=== PATIENT | male | born 1955 | race Caucasian/White ===

== ENCOUNTER 2020-06-18 17:51 | Inpatient (IN) | payer MEDICAID ==
[~2020-06-18] VITALS: Ht 180.3 cm; Wt 77.1 kg
--- NOTE | 2020-06-18 17:51 | NUR ---
PT BIB SELF C/O ABDOMINAL PAIN SINCE SATURDAY. PT IS AAOX4, NOT IN RESPIRATORY DISTRESS, V/S STABLE, KEPT RESTED AND COMFORTABLE. WILL CONTINUE TO MONITOR.
--- NOTE | 2020-06-18 17:56 | NUR ---
UNABLE TO PROVIDE URINE SPECIMEN THIS TIME.
--- NOTE | 2020-06-18 18:10 | NUR ---
IV LINE ESTABLISHED BLOOD DRAWN AND SENT TO LAB.
--- NOTE | 2020-06-18 18:12 | NUR ---
AT BEDSIDE FOR EVAL.
[2020-06-18 18:25] LABS: BASOPHILS % (AUTO) 0.2 % (0.0-2.0); EOSINOPHILS % (AUTO) 0.8 % (0.0-6.0); HEMATOCRIT 43 % (39-51); HEMOGLOBIN 14.1 g/dL (13.5-17.5); LYMPHOCYTES # (AUTO) 0.8 /CMM (0.8-4.8); LYMPHOCYTES % (AUTO) 8.8 % (20.0-44.0); MEAN CORPUSCULAR HGB CONC 33 g/dl (31.0-36.0); MEAN CORPUSCULAR VOLUME 82 fL (80-96); MONOCYTES # (AUTO) 0.7 /CMM (0.1-1.30); MONOCYTES % (AUTO) 7.8 % (2.0-12.0); NEUTROPHILS # (AUTO) 7.5 /CMM (1.8-8.9); NEUTROPHILS % (AUTO) 82.4 % (43.0-81.0); RED BLOOD CELL COUNT(AUTO) 5.24 MIL/uL (4.5-6.0); WHITE BLOOD COUNT (AUTO) 9.1 K/uL (4.3-11.0)
[2020-06-18 18:39] LABS: CALCIUM, SERUM 8.8 mg/dL (8.5-10.1); CREATININE 1.6 mg/dL (0.6-1.3); PLATELET COUNT (AUTO) 27 /CMM (150-450); POTASSIUM 4.2 mmol/L (3.5-5.1)
[2020-06-18 18:41] LABS: EOSINOPHILS % (MANUAL) 5 % (0-4); LYMPHOCYTES % (MANUAL) 5 % (16-48); MONOCYTES % (MANUAL) 8 % (0-11.0); NEUTROPHILS % (MANUAL) 82 (42-76)
[2020-06-18] MEDS ORDERED: MORPHINE SULFATE INJ 2 MG/ML DISP.SYRIN ONE (18:41)
[2020-06-18 18:45] LABS: ALBUMIN 3.4 g/dL (3.4-5.0); BILIRUBIN,DIRECT 0.4 mg/dL (0.0-0.2); BILIRUBIN,TOTAL 0.9 mg/dL (0.2-1.0); TOTAL PROTEIN, SERUM 5.9 g/dL (6.4-8.2)
[2020-06-18] MEDS ORDERED: MORPHINE SULFATE INJ 2 MG/ML DISP.SYRIN IV ONE (19:00)
[2020-06-18 19:22] LABS: BILIRUBIN,URINE NEGATIVE (NEGATIVE); COLOR,URINE YELLOW (YELLOW); LEUKOCYTE ESTERASE ,URINE NEGATIVE (NEGATIVE); NITRITE, URINE NEGATIVE (NEGATIVE); PROTEIN,URINE TRACE mg/dl (NEGATIVE); UGLUCOSE NEGATIVE (NEGATIVE); UROBILINOGEN,URINE 0.2 EU/dL (0.2)
[2020-06-18 19:33] LABS: BACTERIA,URINE RARE /HPF (None Seen); RBC,URINE 0-2 /HPF (0-2); SQUAMOUS EPITHELIAL CELL,UR 0-2 /HPF (None Seen); WBC,URINE 0-2 /HPF (0-3)
[2020-06-18 19:34] LABS: MUCUS,URINE Few /LPF (None Seen); URINE AMORPHOUS URATE Few /HPF (None Seen)
--- NOTE | 2020-06-18 20:33 | NUR ---
EPIC PAGED PER DR SLOAN
[2020-06-18] MEDS ORDERED: IV NS 0.9% 1,000 ML BAG IV ONE (21:00)
[2020-06-18] MEDS ORDERED: HYDROMORPHONE 1 MG/1 ML DISP.SYRIN IV ONE (21:00)
[2020-06-18] MEDS ORDERED: HYDROMORPHONE 1 MG/1 ML DISP.SYRIN ONE (21:19)
--- NOTE | 2020-06-18 21:51 | NUR ---
CALL FROM LAB. RAPID COVID NEGATIVE.
--- NOTE | 2020-06-18 22:05 | NUR ---
REPORT GIVEN TO NEVA MEDINA FOR [facility] PT WILL BE TRANSPORTED TO 3RD FLOOR
[2020-06-18] MEDS ORDERED: LOSA1TAB42 PO (22:28)
[2020-06-18 22:30] VITALS: BP 163/67
--- NOTE | 2020-06-18 22:30 | NUR ---
MS HORTICULTURAL SERVICES SUPERVISOR NOTE RECEIVED PATIENT VIA WHEEL CHAIR. AMBULATED TO BED WITH STEADY GAIT. A/OX4. TOLERATING ROOM AIR. RESPIRATIONS ARE EVEN AND UNLABORED. NO S/S SOB NOTED. NO C/O PAIN AT THIS TIME. IN NO APPARENT DISTRESS. IV ACCESS IN RAC#18 PATENT AND SALINE LOCKED. INITIAL PHYSICAL ASSESSMENT COMPLETED AT THIS TIME. SKIN ASSESSMENT COMPLETED, SKIN INTACT. MANAGER MUTUAL FUND OBTAINED VITALS AND COMPLETED BELONGING LIST. BED IS LOW AND LOCKED, HOB ELEVATED IN SEMI FOWLERS, SIDE RAILS UP X2, CALL LIGHT WITHIN REACH, EXPLAINED USE. WILL CONTINUE TO MONITOR THROUGHOUT SHIFT.
[2020-06-18 23:00] VITALS: BP 158/69
[2020-06-18] MEDS ORDERED: MORPHINE SULFATE INJ 2 MG/ML DISP.SYRIN IV PRN (23:00)
[2020-06-18] MEDS ORDERED: ACETAMINOPHEN 325 MG TABLET PO PRN (23:00)
[2020-06-18] MEDS ORDERED: Z GUARD REMEDY 2 OZ OINT TP PRN (23:00)
[2020-06-18] MEDS ORDERED: ONDANSETRON HCL/PF 4 MG/2 ML VIAL IVP PRN (23:00)
[2020-06-18] MEDS ORDERED: ENOXAPARIN SODIUM 40 MG/0.4 ML DISP.SYRIN SQ SCH (23:00)
[2020-06-18] MEDS ORDERED: INSU100V7 SQ (23:01)
--- NOTE | 2020-06-18 23:25 | NUR ---
SEMAPHORE OPERATOR NOTE INFORMED POWER PLANT SUPERVISOR DNP KRISTINA KASPER THAT PATIENT HAS LOVENOX 40MG ORDERED BUT PATIENTS PLATELETS IS CRITICALLY LOW AT 27, IF HE WOULD LIKE ME TO ADMINISTER, DNP PER TELEPHONE STATES NO DC ORDER. ORDER READ BACK NOTED AND CARRIED OUT. ALSO INFORMED DNP THAT PATIENT IS DIABETIC AND DOES NOT HAVE A SLIDING SCALE ORDERED, PATIENT CHECKED HIS OWN SUGAR AND IT IS 267. AND TAKES ADMELOG FOR HIS COVERAGE WELL AAS LANTUS 24 UNITS QHS. DNP TELEPHONE ORDER MODERATE SLIDING SCALE. AND LANTUS 20 UNITS. ORDER READ BACK NOTED AND CARRIED OUT.
[2020-06-18] MEDS ORDERED: *INSULIN REGULAR(HUMULIN R)HUM 100 UNIT/ML VIAL SQ PRN (23:30)
[2020-06-18] MEDS ORDERED: DEXTROSE 50%-WATER 50 ML DISP.SYRIN IV PRN (23:30)
[2020-06-18] MEDS ORDERED: PIPERACILLIN /TAZOBACTAM 3.375 G VIAL IV ONE (23:33)
[2020-06-18] MEDS: IV NS 0.9% 1,000 ML IV PRN (23:37)
[2020-06-18] MEDS: ZOSYN IVPB 3.375 G in IV D5W 50ml IV SCH (23:37)
[2020-06-18] MEDS: BLOOD SUGAR DIAGNOSTIC 1 EACH STRIP VI SCH (23:54)
[2020-06-18] MEDS ORDERED: INSULIN GLARGINE, 100 UNIT/ML CARTRIDGE SQ ONE (23:57)
[2020-06-18] MEDS ORDERED: INSULIN REGULAR, HUMAN 100 UNIT/ML 3 ML VIAL ONE (23:57)
[2020-06-19] MEDS ORDERED: PIPERACILLIN /TAZOBACTAM 3.375 G in IV D5W 50 ML IV SCH
[2020-06-19] MEDS: INSULIN GLARGINE, 100 UNIT/ML CARTRIDGE SQ SCH ×2 (00:14→21:56)
--- NOTE | 2020-06-19 00:14 | NUR ---
AIRPLANE PILOT COMMERCIAL NOTE PATIENT ACCUC GUNJANCarmelita READS 211. REFUSE REGULAR INSULIN BUT WILING TO TAKE LANTUS.
[2020-06-19] MEDS ORDERED: PIPERACILLIN /TAZOBACTAM 3.375 G VIAL IV ONE (05:29)
[2020-06-19] MEDS: ZOSYN IVPB 3.375 G in IV D5W 50ml IV SCH (06:04)
[2020-06-19] MEDS: BLOOD SUGAR DIAGNOSTIC 1 EACH STRIP VI SCH ×4 (06:04→21:28)
[2020-06-19] MEDS: INSULIN REGULAR, HUMAN 100 UNIT/ML 3 ML VIAL SQ PRN ×2 (06:15→11:37)
--- NOTE | 2020-06-19 06:38 | NUR ---
MS RN CLOSING NOTE PATIENT RESTING IN BED. A/OX4. REMAINS TOLERATING ROOM AIR. NO RESP DISTRESS.NO C/O PAIN THROUGHOUT SHIFT. NO DISTRESS. IV ACCESS MAINTAINED IN RAC#18 RUNNING NS@75ML/HR.BED IS LOW AND LOCKED, HOB ELEVATED IN SEMI FOWLERS, SIDE RAILS UP X2, CALL LIGHT WITHIN REACH, EXPLAINED USE. WILL ENDORSE TO ONCOMING SHIFT..
[2020-06-19 06:39] LABS: BASOPHILS % (AUTO) 0.5 % (0.0-2.0); EOSINOPHILS % (AUTO) 1.5 % (0.0-6.0); HEMATOCRIT 39 % (39-51); HEMOGLOBIN 12.6 g/dL (13.5-17.5); LYMPHOCYTES # (AUTO) 0.7 /CMM (0.8-4.8); MEAN CORPUSCULAR HGB CONC 32 g/dl (31.0-36.0); MEAN CORPUSCULAR VOLUME 83 fL (80-96); MONOCYTES # (AUTO) 0.4 /CMM (0.1-1.30); MONOCYTES % (AUTO) 10.1 % (2.0-12.0); NEUTROPHILS # (AUTO) 3.1 /CMM (1.8-8.9); NEUTROPHILS % (AUTO) 70.9 % (43.0-81.0); RED BLOOD CELL COUNT(AUTO) 4.68 MIL/uL (4.5-6.0); WHITE BLOOD COUNT (AUTO) 4.3 K/uL (4.3-11.0)
[2020-06-19 06:47] LABS: PLATELET COUNT (AUTO) 21 /CMM (150-450)
[2020-06-19 07:17] LABS: ALBUMIN 2.7 g/dL (3.4-5.0); BILIRUBIN,TOTAL 0.8 mg/dL (0.2-1.0); CALCIUM, SERUM 8.1 mg/dL (8.5-10.1); CREATININE 1.6 mg/dL (0.6-1.3); MAGNESIUM 2.7 mg/dL (1.8-2.4); POTASSIUM 5.1 mmol/L (3.5-5.1)
[2020-06-19 07:21] LABS: THYROID STIMULATING HORMONE 1.013 uIU/mL (0.358-3.74)
--- NOTE | 2020-06-19 07:30 | NUR ---
MS RN OPENING NOTE RECEIVED PATIENT IN BED, AWAKE. A/O X4. ON ROOM AIR - TOLERATING WELL. NO PAIN OR RESPIRATORY DISTRESS NOTED. IV ACCESS IN RAC#18 INTACT AND PATENT - RUNNING NS @75ML/HR. BED IN LOWEST LOCKED POSITION, HOB ELEVATED IN SEMI FOWLERS. SIDE RAILS X2. CALL LIGHT WITHIN REACH. WILL CONTINUE TO MONITOR.
[2020-06-19 08:00] VITALS: BP 132/68
[2020-06-19] MEDS: PANTOPRAZOLE 40 MG VIAL IV SCH (08:07)
[2020-06-19] MEDS: LOSARTAN/HCTZ 50-12.5MG/ 1 EA TABLET PO SCH (08:11)
[2020-06-19 08:31] VITALS: BP 166/94
[2020-06-19] MEDS: PIPERACILLIN /TAZOBACTAM 3.375 G in IV D5W 100 ML IV SCH ×2 (12:20→20:12)
--- NOTE | 2020-06-19 14:40 | NUR ---
MS RN NOTE PATIENT CHECKED HIS BLOOD SUGAR HIMSELF @ 1435. PATIENT ADMINISTERED 8 UNITS OF HIS OWN INSULIN.
[2020-06-19 16:00] VITALS: BP 124/57
--- NOTE | 2020-06-19 16:30 | NUR ---
MS RN NOTE PATIENT CHECKED HIS BLOOD SUGAR HIMSELF @ 1625. BLOOD SUGAR WAS 80 - NO INSULIN ADMINISTERED BY PATIENT.
--- NOTE | 2020-06-19 18:24 | NUR ---
MS RN CLOSING NOTE PATIENT CURRENTLY RESTING IN BED, AWAKE, WATCHING TV. A/O X4. ON ROOM AIR, TOLERATING WELL. NO PAIN OR RESPIRATORY DISTRESS NOTED. IV ACCESS MAINTAINED IN RAC #18 - RUNNING NS @75ML/HR. BED IS LOW AND LOCKED, HOB ELEVATED IN SEMI FOWLERS, SIDE RAILS X2, CALL LIGHT WITHIN REACH. WILL ENDORSE TO POLYMER SPECIALIST NURSE FOR GIBSON.
[2020-06-19 18:42] LABS: C-REACTIVE PROTEIN 5.2 mg/dL (0.0-0.9)
--- NOTE | 2020-06-19 19:40 | NUR ---
MS/RN OPENING NOTE RECEIVED PATIENT RESTING IN BED. AWAKE, ALERT AND ORIENTED X 4. ABLE TO MAKE NEEDS KNOWN. NO COMPLAINTS OF PAIN AT THIS TIME. IV ACCESS TO RIGHT AC #18G INTACT AND PATENT. CONTINUES ON IV NS @ 75ML/HR. CONTINUES ON IV ABX. CONTINUES ON FULL LIQUID DIET. NO COMPLAINTS OF NAUSEA/VOMITING/DIARRHEA AT THIS TIME. CALL LIGHT WITHIN REACH. ASPIRATION, FALL AND SAFETY PRECAUTIONS MAINTAINED. WILL CONTINUE TO MONITOR.
[2020-06-19 20:00] VITALS: BP 134/60
[2020-06-19] MEDS: IV NS 0.9% 1,000 ML IV PRN (20:11)
--- NOTE | 2020-06-19 22:00 | NUR ---
MS/RN NOTE PATIENT WITH BLOOD GLUCOSE LEVEL OF 137. PATIENT REFUSING SLIDING SCALE INSULIN AT THIS TIME. ADMINISTERED LANTUS 20UNITS PER ORDER. WILL CONTINUE TO MONITOR.
[2020-06-20] MEDS: PIPERACILLIN /TAZOBACTAM 3.375 G in IV D5W 100 ML IV SCH ×2 (05:53→12:05)
--- NOTE | 2020-06-20 06:40 | NUR ---
MS/RN CLOSING NOTE PATIENT CURRENTLY RESTING IN BED. AWAKE, ALERT AND ORIENTED X 4. ABLE TO MAKE NEEDS KNOWN. NO COMPLAINTS OF PAIN AT THIS TIME. IV ACCESS TO RIGHT AC #18G INTACT AND PATENT. CONTINUES ON IV NS @ 75ML/HR. CONTINUES ON IV ABX. CONTINUES ON FULL LIQUID DIET. NO COMPLAINTS OF NAUSEA/VOMITING/DIARRHEA AT THIS TIME. CALL LIGHT WITHIN REACH. ASPIRATION, FALL AND SAFETY PRECAUTIONS MAINTAINED. WILL ENDORSE PLAN OF CARE TO ONCOMING SHIFT.
[2020-06-20 06:54] LABS: BASOPHILS % (AUTO) 0.6 % (0.0-2.0); EOSINOPHILS % (AUTO) 3.3 % (0.0-6.0); HEMATOCRIT 38 % (39-51); HEMOGLOBIN 12.3 g/dL (13.5-17.5); LYMPHOCYTES # (AUTO) 0.7 /CMM (0.8-4.8); LYMPHOCYTES % (AUTO) 20.3 % (20.0-44.0); MEAN CORPUSCULAR HGB CONC 33 g/dl (31.0-36.0); MEAN CORPUSCULAR VOLUME 82 fL (80-96); MONOCYTES # (AUTO) 0.3 /CMM (0.1-1.30); MONOCYTES % (AUTO) 9.1 % (2.0-12.0); NEUTROPHILS # (AUTO) 2.3 /CMM (1.8-8.9); NEUTROPHILS % (AUTO) 66.7 % (43.0-81.0); RED BLOOD CELL COUNT(AUTO) 4.63 MIL/uL (4.5-6.0); WHITE BLOOD COUNT (AUTO) 3.4 K/uL (4.3-11.0)
[2020-06-20 06:58] LABS: PLATELET COUNT (AUTO) 16 /CMM (150-450)
[2020-06-20] MEDS: INSULIN REGULAR, HUMAN 100 UNIT/ML 3 ML VIAL SQ PRN (07:09)
[2020-06-20] MEDS: BLOOD SUGAR DIAGNOSTIC 1 EACH STRIP VI SCH ×4 (07:14→21:06)
--- NOTE | 2020-06-20 07:40 | NUR ---
MS RN OPENING NOTE RECEIVED PATIENT IN BED, AWAKE, WATCHING TV. A/O X4. ON ROOM AIR - TOLERATING WELL. NO PAIN OR RESPIRATORY DISTRESS NOTED. IV ACCESS IN RAC #18 - INTACT AND PATENT - RUNNING NS @75ML/HR. BED IN LOWEST LOCKED POSITION, SEMI FOWLERS, SIDE RAILS X2. CALL LIGHT WITHIN REACH. WILL CONTINUE TO MONITOR.
[2020-06-20 08:00] VITALS: BP 139/58
[2020-06-20] MEDS: FERROUS SULFATE (325 MG) 325 MG/TAB TABLET PO SCH (08:19)
[2020-06-20] MEDS: LOSARTAN/HCTZ 50-12.5MG/ 1 EA TABLET PO SCH (08:19)
[2020-06-20] MEDS: PANTOPRAZOLE 40 MG VIAL IV SCH (08:19)
[2020-06-20 09:31] LABS: EOSINOPHILS % (MANUAL) 2 % (0-4); LYMPHOCYTES % (MANUAL) 23 % (16-48); MONOCYTES % (MANUAL) 7 % (0-11.0); NEUTROPHILS % (MANUAL) 68 (42-76)
--- NOTE | 2020-06-20 11:39 | NUR ---
MS RN NOTE PATIENT BLOOD SUGAR @ 317 - REFUSES INSULIN. PATIENT CHECKED OWN BLOOD SUGAR HIMSELF AND IT WAS 288 - STATED HE WOULD GIVE HIMSELF 12 UNITS OF OWN INSULIN.
[2020-06-20 15:24] LABS: OCCULT BLOOD STOOL NEGATIVE (NEGATIVE)
[2020-06-20] MEDS: methylPREDNISolone SOD SUCC 125 MG/2ML VIAL IV SCH ×2 (15:34→21:06)
[2020-06-20 15:56] LABS: D-DIMER 34.78 mg/L(FEU (0.17-0.50)
[2020-06-20 16:00] VITALS: BP 153/59
[2020-06-20] MEDS ORDERED: DEXTROSE 50%-WATER 50 ML DISP.SYRIN IV PRN (17:00)
[2020-06-20] MEDS ORDERED: INSULIN REGULAR, HUMAN 100 UNIT/ML 3 ML VIAL SQ PRN (17:00)
[2020-06-20] MEDS ORDERED: *INSULIN REGULAR(HUMULIN R)HUM 100 UNIT/ML VIAL SQ PRN (17:00)
--- NOTE | 2020-06-20 17:41 | NUR ---
CRITICAL LAB FIBRINOGEN LEVEL 88. YOU GALLEGOS NP NOTIFIED.
--- NOTE | 2020-06-20 18:33 | NUR ---
MS RN CLOSING NOTE PATIENT CURRENTLY RESTING IN BED, AWAKE, WATCHING TV. A/O X4. ON ROOM AIR, TOLERATING WELL. NO PAIN OR RESPIRATORY DISTRESS NOTED. PATIENT REFUSED DINNER TRAY - WANTING TO ORDER OUTSIDE FOOD DUE TO NO DIABETIC OPTIONS HERE. PATIENT TO GET 10 UNITS CRYOPRECIPITATE TRANSFUSION - WILL ENDORSE TO RISK CONTROL DIRECTOR NURSE. PATIENT IS WAITING ON GI CONSULT FROM DR. ESCALONA. IV ACCESS MAINTAINED IN RAC #18 - RUNNING NS @75ML/HR. BED IS LOW AND LOCKED, SEMI FOWLERS, SIDE RAILS X2, CALL LIGHT WITHIN REACH. WILL ENDORSE TO RISK CONTROL DIRECTOR NURSE FOR GIBSON.
[2020-06-20 19:00] VITALS: BP 149/65
--- NOTE | 2020-06-20 19:25 | NUR ---
MS/RN OPENING NOTE RECEIVED PATIENT RESTING IN BED. AWAKE, ALERT AND ORIENTED X 4. ABLE TO MAKE NEEDS KNOWN. NO COMPLAINTS OF PAIN AT THIS TIME. IV ACCESS TO RIGHT AC #18G INTACT AND PATENT. CONTINUES ON IV NS @ 75ML/HR. CONTINUES ON FULL LIQUID DIET. NO NAUSEA/VOMITING/DIARRHEA NOTED AT THIS TIME. CALL LIGHT WITHIN REACH. ASPIRATION, FALL AND SAFETY PRECAUTIONS MAINTAINED. WILL CONTINUE TO MONITOR.
[2020-06-20] MEDS ORDERED: diphenhydrAMINE HCL 50 MG/ML VIAL IV ONE (19:30)
[2020-06-20] MEDS ORDERED: ACETAMINOPHEN 325 MG TABLET PO ONE (19:30)
--- NOTE | 2020-06-20 20:00 | NUR ---
MS/RN NOTE NEW ORDER FOR CYTOPRECIPITATE TRANSFUSION. NOTIFIED BLOOD BLANK.
--- NOTE | 2020-06-20 20:54 | NUR ---
MS/RN NOTE PATIENT UPSET THAT HE HASN'T SEEN GI DOCTOR YET. GI CONSULT CURRENTLY IN PLACE. PATIENT WANTS TO SPEAK TO DOCTOR. ON-CALL MD KASPER NOTIFIED.
[2020-06-20] MEDS ORDERED: CEFEPIME 1 GM VIAL IM SCH (21:00)
[2020-06-20] MEDS: FAMOTIDINE/PF INJ 20 MG/2 ML VIAL IV SCH (21:06)
[2020-06-20] MEDS: CEFEPIME 1 GM in IV D5W 50 ML IV SCH (21:06)
[2020-06-20] MEDS: INSULIN GLARGINE, 100 UNIT/ML CARTRIDGE SQ SCH (21:37)
--- NOTE | 2020-06-20 21:49 | NUR ---
MS/RN NOTE PATIENT'S BLOOD GLUCOSE LEVEL AT 22OO WAS 240. ADMINISTERED LANTUS ORDERED. PATIENT REFUSING SLIDING SCALE AT THIS TIME. AWARE.
[2020-06-20] MEDS ORDERED: HYDROMORPHONE 1 MG/1 ML DISP.SYRIN IV PRN (21:50)
[2020-06-20] MEDS ORDERED: diphenhydrAMINE HCL 50 MG/ML VIAL ONE (22:46)
[2020-06-20 23:59] VITALS: BP 135/59
[2020-06-21] VITALS (15 sets, daily range): BP systolic 113–155; BP diastolic 57–71
--- NOTE | 2020-06-21 | NUR ---
MS/RN NOTE PATIENT COMPLETED 10 UNITS OF CRYOPRECIPITATE TRANSFUSION WITH NO SIGNS OR SYMPTOMS OF ABNORMAL REACTION. NO FEVER, CHILLS, SOB OR HEADACHES NOTED. WILL CONTINUE TO MONITOR.
[2020-06-21] MEDS: IV NS 0.9% 1,000 ML IV PRN (01:16)
--- NOTE | 2020-06-21 06:00 | NUR ---
MS/RN NOTE RECEIVED CALL FROM LAB. CRITICAL LAB RESULT PLATELET 22. WILL ENDORSE TO AM RN.
--- NOTE | 2020-06-21 06:25 | NUR ---
MS/RN NOTE PATIENTS BLOOD GLUCOSE THIS AM WAS 235. PATIENT REFUSED INSULIN FROM THIS RN. AWARE.
--- NOTE | 2020-06-21 06:30 | NUR ---
MS/RN CLOSING NOTE PATIENT CURRENTLY RESTING IN BED. AWAKE, ALERT AND ORIENTED X 4. ABLE TO MAKE NEEDS KNOWN. NO COMPLAINTS OF PAIN AT THIS TIME. IV ACCESS TO RIGHT AC INTACT AND PATENT. CONTINUES ON IV NS @ 75ML/HR. CONTINUES ON IV ABX. CONTINUES ON FULL LIQUID DIET WITH NO COMPLAINTS OF NAUSEA/VOMITING AT THIS TIME. CALL LIGHT WITHIN REACH. ASPIRATION, FALL AND SAFETY PRECAUTIONS MAINTAINED. WILL ENDORSE PLAN OF CARE TO ONCOMING SHIFT.
[2020-06-21 07:19] LABS: D-DIMER 30.66 mg/L(FEU (0.17-0.50)
[2020-06-21] MEDS: BLOOD SUGAR DIAGNOSTIC 1 EACH STRIP VI SCH ×4 (07:23→22:00)
--- NOTE | 2020-06-21 07:30 | NUR ---
MS RN OPENING NOTE RECEIVED PATIENT WALKING AROUND THE UNIT FLOOR. AWAKE, A/O X4. ABLE TO MAKE NEEDS KNOWN. NO COMPLAINTS OF PAIN AT THIS TIME. IV ACCESS TO RIGHT AC #18G INTACT AND PATENT. CONTINUES ON IV NS @ 75ML/HR. NO NAUSEA/VOMITING/DIARRHEA NOTED AT THIS TIME. CALL LIGHT WITHIN REACH. SAFETY PRECAUTIONS MAINTAINED. WILL CONTINUE TO MONITOR.
[2020-06-21] MEDS: FAMOTIDINE/PF INJ 20 MG/2 ML VIAL IV SCH ×2 (08:11→20:43)
[2020-06-21] MEDS: FERROUS SULFATE (325 MG) 325 MG/TAB TABLET PO SCH (08:11)
[2020-06-21] MEDS: methylPREDNISolone SOD SUCC 125 MG/2ML VIAL IV SCH ×2 (08:11→20:43)
[2020-06-21] MEDS: CEFEPIME 1 GM in IV D5W 50 ML IV SCH ×2 (08:12→20:43)
[2020-06-21] MEDS: LOSARTAN/HCTZ 50-12.5MG/ 1 EA TABLET PO SCH (08:16)
[2020-06-21 09:37] LABS: IMMUNOGLOBULIN A, SERUM 42 mg/dL (61-437); IMMUNOGLOBULIN G, SERUM 196 mg/dL (603-1613); IMMUNOGLOBULIN M, SERUM 32 mg/dL (20-172)
--- NOTE | 2020-06-21 09:37 | NUR ---
PLT 22. PER RN/ SHOSHANA PLT WAS ORDERED, IT WONT BE RECEIVED TODAY, PROCEDURE WILL BE DONE TOMORROW,AND SHE NOTIFIED DR. ESCALONA. DR. AUGUSTINE WAS INFORMED.
[2020-06-21 09:41] LABS: BASOPHILS % (AUTO) 0.1 % (0.0-2.0); EOSINOPHILS % (AUTO) 0.4 % (0.0-6.0); HEMATOCRIT 37 % (39-51); HEMOGLOBIN 12.3 g/dL (13.5-17.5); LYMPHOCYTES # (AUTO) 0.3 /CMM (0.8-4.8); LYMPHOCYTES % (AUTO) 12.9 % (20.0-44.0); MEAN CORPUSCULAR HGB CONC 33 g/dl (31.0-36.0); MEAN CORPUSCULAR VOLUME 82 fL (80-96); MONOCYTES % (AUTO) 1.4 % (2.0-12.0); NEUTROPHILS # (AUTO) 1.8 /CMM (1.8-8.9); NEUTROPHILS % (AUTO) 85.2 % (43.0-81.0); RED BLOOD CELL COUNT(AUTO) 4.57 MIL/uL (4.5-6.0); WHITE BLOOD COUNT (AUTO) 2.1 K/uL (4.3-11.0)
[2020-06-21 09:49] LABS: PLATELET COUNT (AUTO) 24 /CMM (150-450)
--- NOTE | 2020-06-21 09:50 | NUR ---
CRITICAL LAB CRITICAL LAB: PLATELET IS 24. JENNIFER RICE AND HAYDEN RODRIGUEZ AWARE.
[2020-06-21] MEDS ORDERED: ACETAMINOPHEN 325 MG TABLET PO ONE (10:00)
[2020-06-21] MEDS ORDERED: diphenhydrAMINE HCL 50 MG/ML VIAL IV ONE (10:00)
--- NOTE | 2020-06-21 10:00 | NUR ---
MS RN NOTE PLATELET TRANSFUSION ORDERED PER MICHAEL FOR PARACENTESIS PROCEDURE. PLATELETS MUST BE ORDERED FROM [facility] AND WILL NOT BE HERE UNTIL TOMORROW. DR. ESCALONA AWARE. PATIENT MADE AWARE. PLATELET TRANSFUSION FOR TOMORROW.
--- NOTE | 2020-06-21 11:25 | NUR ---
MS RN NOTE CRYOPRECIPITATE ORDERED. PRE TRANSFUSION VITALS STABLE. VERIFIED CRYOPRECIPITATE WITH NEVA WISE.
--- NOTE | 2020-06-21 12:05 | NUR ---
MS RN NOTE PATIENT BLOOD SUGAR @ 295. PATIENT REFUSED INSULIN - WANTS TO USE HIS OWN.
--- NOTE | 2020-06-21 13:25 | NUR ---
MS RN TRANSFUSION NOTE PATIENT COMPLETED 10 UNITS OF CRYOPRECIPITATE TRANSFUSION WITH NO REACTION NOTED. NO FEVER, CHILLS, SOB OR HEADACHES NOTED. WILL CONTINUE TO MONITOR.
--- NOTE | 2020-06-21 17:22 | NUR ---
MS RN NOTE PATIENT REFUSED ACCUCHECK - STATED HE HAS BEEN CHECKING IT HIMSELF EVERY HOUR. PATIENT STATES HIS BLOOD SUGAR HAS BEEN IN THE 400'S AND HAS BEEN SELF-ADMINISTERING INSULIN.
--- NOTE | 2020-06-21 18:27 | NUR ---
MS RN CLOSING NOTE PATIENT CURRENTLY RESTING IN BED. AWAKE, A/O X 4. ABLE TO MAKE NEEDS KNOWN. NO COMPLAINTS OF PAIN AT THIS TIME. IV ACCESS TO RIGHT AC - RUNNING NS @ 75ML/HR. CONTINUES ON FULL LIQUID DIET WITH NO COMPLAINTS OF NAUSEA/VOMITING AT THIS TIME. CALL LIGHT WITHIN REACH. SAFETY PRECAUTIONS MAINTAINED. WILL ENDORSE TO DISTRICT WILDLIFE MANAGER NURSE FOR GIBSON.
--- NOTE | 2020-06-21 20:10 | NUR ---
MS RN OPENING NOTES PT WAS SEEN AWAKE IN BED. PT IS ALERT AND ORIENTED X 4. PT'S STABLE ON ROOM AIR, BREATHING EVEN AND UNLABORED. PT HAS AN IV ACCESS ON RAC RUNNING NORMAL SALINE AT 75 ML/HOUR. IV ACCESS IS INTACT AND PATENT. SAFETY MEASURES IN PLACE. CALL LIGHT WITHIN EASY REACH AND BED ALARM ON. WILL CONTINUE TO MONITOR THE PATIENT.
[2020-06-21] MEDS: INSULIN GLARGINE, 100 UNIT/ML CARTRIDGE SQ SCH (22:00)
--- NOTE | 2020-06-21 22:00 | NUR ---
MS RN NOTES PT REFUSED TO HAVE HIS BLOOD SUGAR CHECKED AND INSULIN GIVEN AT 2200. PER PT, HE SELF ADMINISTERS HIS OWN INSULIN AND CHECKS HIS OWN BLOOD SUGAR.
[2020-06-22 06:45] LABS: D-DIMER 25.89 mg/L(FEU (0.17-0.50)
[2020-06-22 06:47] LABS: BASOPHILS % (AUTO) 0.1 % (0.0-2.0); HEMATOCRIT 38 % (39-51); HEMOGLOBIN 12.6 g/dL (13.5-17.5); LYMPHOCYTES # (AUTO) 0.5 /CMM (0.8-4.8); LYMPHOCYTES % (AUTO) 6.6 % (20.0-44.0); MEAN CORPUSCULAR HGB CONC 33 g/dl (31.0-36.0); MEAN CORPUSCULAR VOLUME 80 fL (80-96); MONOCYTES # (AUTO) 0.2 /CMM (0.1-1.30); MONOCYTES % (AUTO) 3.2 % (2.0-12.0); NEUTROPHILS # (AUTO) 6.7 /CMM (1.8-8.9); NEUTROPHILS % (AUTO) 90.1 % (43.0-81.0); PLATELET COUNT (AUTO) 57 /CMM (150-450); RED BLOOD CELL COUNT(AUTO) 4.71 MIL/uL (4.5-6.0); WHITE BLOOD COUNT (AUTO) 7.4 K/uL (4.3-11.0)
--- NOTE | 2020-06-22 07:00 | NUR ---
MS RN CLOSING NOTES PT WAS SEEN AWAKE. PT IS ALERT AND ORIENTED X 4. PT'S STABLE ON ROOM AIR, BREATHING EVEN AND UNLABORED. PT HAS AN IV ACCESS ON RAC. IV ACCESS IS INTACT AND PATENT. SAFETY MEASURES IN PLACE. CALL LIGHT WITHIN EASY REACH AND BED ALARM ON. WILL ENDORSE CONTINUITY OF CARE TO LEAD APPLICATIONS DEVELOPER NURSE.
[2020-06-22 07:09] LABS: CALCIUM, SERUM 8.9 mg/dL (8.5-10.1); CREATININE 1.3 mg/dL (0.6-1.3); POTASSIUM 4.7 mmol/L (3.5-5.1)
[2020-06-22] MEDS: BLOOD SUGAR DIAGNOSTIC 1 EACH STRIP VI SCH ×4 (07:30→22:00)
--- NOTE | 2020-06-22 07:30 | NUR ---
MS OPENING NOTE PATIENT RESTING IN BED, ALERT & ORIENTED X 4. NO ACUTE DISTRESS OR SHORTNESS OF BREATH NOTED. NO PAIN REPORTED AT THIS TIME. SAFETY MEASURES IN PLACE, BED IN LOWEST POSITION, CALL LIGHT WITHIN REACH AND BED ALARM ON. WILL CONTINUE TO MONITOR
[2020-06-22 08:00] VITALS: BP 157/76
--- NOTE | 2020-06-22 08:00 | NUR ---
MS RN NOTES PATIENT REFUSED ACCU CHECK. WANTS TO CHECK HIS OWN. RISK AND BENEFITS EXPLAINED. DR. KRYSTAL RODRIGUEZ AWARE. NO NEW ORDERS MADE AT THIS TIME
[2020-06-22 08:07] LABS: *SPE A/G RATIO 1.2 (0.7-1.7); *SPE ALBUMIN 3.2 g/dL (2.9-4.4); *SPE ALPHA-1-GLOBULIN 0.5 g/dL (0.0-0.4); *SPE BETA GLOBULIN 0.9 g/dL (0.7-1.3); *SPE GLOBULIN, TOTAL 2.6 g/dL (2.2-3.9); *SPE M-SPIKE 0.1 g/dL (Not Observed); *SPEGAMMA GLOBULIN 0.2 g/dL (0.4-1.8)
--- NOTE | 2020-06-22 08:25 | NUR ---
MS RN NOTES PATIENT SEEN AND EVALUATED BY DR KRYSTAL RODRIGUEZ WITH NEW ORDER TO CHANGE DIET FROM FULL LIQUID TO CCHO 1800 DIET AND DISCONTINUE PLATELET ORDER. ORDER CLARIFIED AND READBACK WITH DR RODRIGUEZ, NOTED AND CARRIED OUT.
[2020-06-22] MEDS: methylPREDNISolone SOD SUCC 125 MG/2ML VIAL IV SCH ×2 (08:37→21:08)
[2020-06-22] MEDS: FERROUS SULFATE (325 MG) 325 MG/TAB TABLET PO SCH ×2 (08:38→17:23)
[2020-06-22] MEDS: FAMOTIDINE/PF INJ 20 MG/2 ML VIAL IV SCH ×2 (08:38→21:08)
[2020-06-22] MEDS: CEFEPIME 1 GM in IV D5W 50 ML IV SCH ×2 (08:40→21:08)
[2020-06-22] MEDS: LOSARTAN/HCTZ 50-12.5MG/ 1 EA TABLET PO SCH (08:40)
[2020-06-22 11:08] LABS: *ANA ANTI-CENTROMERE B AB <0.2 AI (0.0-0.9); *ANA ANTI-DNA(DS) AB, QN <1 IU/mL (0-9); *ANA ANTI-JO-1 <0.2 AI (0.0-0.9); *ANA ANTICHROMATIN ANTIBODY <0.2 AI (0.0-0.9); *ANA RNP ANTIBODIES <0.2 AI (0.0-0.9); *ANA SJOGREN'S ANTI-SS-A <0.2 AI (0.0-0.9); *ANA SJOGREN'S ANTI-SS-B <0.2 AI (0.0-0.9); *ANAANTI-SCLERODERMA-70 AB <0.2 AI (0.0-0.9); *ANASMITH AB <0.2 AI (0.0-0.9)
[2020-06-22 11:20] LABS: LYMPHOCYTES % (MANUAL) 4 % (16-48); MONOCYTES % (MANUAL) 3 % (0-11.0); NEUTROPHILS % (MANUAL) 93 (42-76)
[2020-06-22 12:07] LABS: *SPE A/G RATIO 1.4 (0.7-1.7); *SPE ALBUMIN 2.8 g/dL (2.9-4.4); *SPE ALPHA-1-GLOBULIN 0.3 g/dL (0.0-0.4); *SPE ALPHA-2-GLOBULIN 0.8 g/dL (0.4-1.0); *SPE BETA GLOBULIN 0.7 g/dL (0.7-1.3); *SPE M-SPIKE Not Observed g/dL (Not Observed); *SPEGAMMA GLOBULIN 0.2 g/dL (0.4-1.8)
[2020-06-22] MEDS ORDERED: ACETAMINOPHEN 325 MG TABLET PO ONE ×2 (13:30→18:30)
[2020-06-22] MEDS ORDERED: diphenhydrAMINE HCL 50 MG/ML VIAL IV ONE ×2 (13:30→18:30)
--- NOTE | 2020-06-22 15:03 | NUR ---
RN AWARE THAT THE PROCEDURE WILL NOT BE PERFORMED, NOT ENOUGH FLUID SAFE FOR TAPPING
[2020-06-22] MEDS: IV NS 0.9% 1,000 ML IV PRN (15:44)
[2020-06-22 16:00] VITALS: BP 140/65
[2020-06-22] MEDS ORDERED: GLUC1CAP30 PO (16:45)
[2020-06-22 18:00] VITALS: BP 147/62
--- NOTE | 2020-06-22 18:17 | NUR ---
MS RN NOTES STARTED TRANSFUSION , VITAL SIGNS STABLE , PATIENT ALERT ORIENTED X 4. WILL CONTINUE TO MONITOR.
[2020-06-22 18:32] VITALS: BP 140/62
--- NOTE | 2020-06-22 18:32 | NUR ---
MS RN NOTES ON GOING TRANSFUSION , VITAL SIGNS REMAIN STABLE , NO ADVERSE REACTION NOTED. PATIENT ALERT ORIENTED X 4. WILL CONTINUE TO MONITOR.
[2020-06-22 18:50] VITALS: BP 136/61
--- NOTE | 2020-06-22 18:50 | NUR ---
MS RN NOTES TRANSFUSION ENDED , VITAL SIGNS REMAIN STABLE , NO ADVERSE REACTION NOTED. PATIENT ALERT ORIENTED X 4. WILL CONTINUE TO MONITOR.
--- NOTE | 2020-06-22 19:00 | NUR ---
MS CLOSING NOTE PATIENT RESTING IN ROOM, ALERT AND ORIENTED X 4. NO ACUTE DISTRESS OR SHORTNESS OF BREATH NOTED. NO ADVERSE REACTION OF TRANSFUSION NOTED. VITAL SIGNS REMAIN STABLE. SAFETY MEASURES IN PLACE, BED IN LOWEST POSITION AND CALL LIGHT WITHIN REACH. WILL ENDORSE TO FLOWER POT PRESS OPERATOR NURSE FOR CONTINUITY OF CARE.
--- NOTE | 2020-06-22 19:30 | NUR ---
MS/RN OPENING NOTES RECEIVED PATIENT IN BED RESTING. PATIENT IS ALERT AND ORIENTED X 4. PATIENTS BREATHING IS EVEN AND UNLABORED. NO SIGNS ON SOB OR RESPIRATORY NOTED. PATIENT IN NO SIGNS OF DISTRESS. SAFETY MEASURES ARE IN PLACE, BED IS LOCKED AND PLACED IN THE LOW POSITION, CALL LIGHT IS WITHIN REACH. WILL CONTINUE WITH PATIENT PLAN OF CARE.
[2020-06-22 20:00] VITALS: BP 139/63
[2020-06-22] MEDS: INSULIN GLARGINE, 100 UNIT/ML CARTRIDGE SQ SCH (22:00)
[2020-06-23 06:49] LABS: HEMATOCRIT 37 % (39-51); HEMOGLOBIN 12.3 g/dL (13.5-17.5); LYMPHOCYTES # (AUTO) 0.4 /CMM (0.8-4.8); LYMPHOCYTES % (AUTO) 5.8 % (20.0-44.0); MEAN CORPUSCULAR HGB CONC 33 g/dl (31.0-36.0); MEAN CORPUSCULAR VOLUME 81 fL (80-96); MONOCYTES # (AUTO) 0.2 /CMM (0.1-1.30); MONOCYTES % (AUTO) 3.1 % (2.0-12.0); NEUTROPHILS # (AUTO) 5.7 /CMM (1.8-8.9); NEUTROPHILS % (AUTO) 91.1 % (43.0-81.0); PLATELET COUNT (AUTO) 86 /CMM (150-450); RED BLOOD CELL COUNT(AUTO) 4.57 MIL/uL (4.5-6.0); WHITE BLOOD COUNT (AUTO) 6.3 K/uL (4.3-11.0)
--- NOTE | 2020-06-23 06:55 | NUR ---
MS/RN CLOSING NOTES PATIENT IN BED RESTING. PATIENT IS ALERT AND ORIENTED X 4. PATIENTS BREATHING IS EVEN AND UNLABORED. NO SIGNS ON SOB OR RESPIRATORY NOTED. PATIENT IN NO SIGNS OF DISTRESS. ALL NEEDS HAVE BEEN MET DURING SHIFT. SAFETY MEASURES ARE IN PLACE, BED IS LOCKED AND PLACED IN THE LOW POSITION, CALL LIGHT IS WITHIN REACH. WILL ENDORSE TO DAY SHIFT NURSE.
[2020-06-23 07:13] LABS: D-DIMER 18.07 mg/L(FEU (0.17-0.50)
--- NOTE | 2020-06-23 07:15 | NUR ---
MS OPENING NOTE PATIENT RESTING IN BED, ALERT & ORIENTED X 4. NO ACUTE DISTRESS OR SHORTNESS OF BREATH NOTED. NO PAIN REPORTED AT THIS TIME. SAFETY MEASURES IN PLACE, BED LOCKED IN LOWEST POSITION, CALL LIGHT WITHIN REACH AND BED ALARM ON. WILL CONTINUE TO MONITOR
[2020-06-23 07:16] LABS: CALCIUM, SERUM 8.7 mg/dL (8.5-10.1); CREATININE 1.2 mg/dL (0.6-1.3); POTASSIUM 4.4 mmol/L (3.5-5.1)
[2020-06-23] MEDS: BLOOD SUGAR DIAGNOSTIC 1 EACH STRIP VI SCH ×2 (07:30→12:00)
[2020-06-23 08:00] VITALS: BP 168/67
[2020-06-23 08:26] VITALS: BP 168/67
[2020-06-23] MEDS: LOSARTAN/HCTZ 50-12.5MG/ 1 EA TABLET PO SCH (08:26)
[2020-06-23] MEDS: methylPREDNISolone SOD SUCC 125 MG/2ML VIAL IV SCH (08:27)
[2020-06-23] MEDS: CEFEPIME 1 GM in IV D5W 50 ML IV SCH (08:27)
[2020-06-23] MEDS: FERROUS SULFATE (325 MG) 325 MG/TAB TABLET PO SCH (08:27)
[2020-06-23] MEDS: FAMOTIDINE/PF INJ 20 MG/2 ML VIAL IV SCH (08:27)
--- NOTE | 2020-06-23 10:33 | NUR ---
MS RN NOTE PATIENT TRANSPORTED FOR BONE X-RAY VIA WHEELCHAIR. PATIENT ALERT AND ORIENTED X 4. PATIENT IN STABLE CONDITION
--- NOTE | 2020-06-23 11:15 | NUR ---
MS RN NOTES PATIENT CAME BACK FROM X-RAY IN STABLE CONDITION. PATIENT ALERT AND ORIENTED X 4. WILL CONTINUE TO MONITOR
[2020-06-23] MEDS ORDERED: PRED50TA PO (11:48)
--- NOTE | 2020-06-23 16:55 | NUR ---
MS DISCHARGE NOTE PATIENT DISCHARGED HOME IN STABLE CONDITION, VITAL SIGNS WNL, ALERT AND ORIENTED X4, NO ACUTE DISTRESS OR SHORTNESS OF BREATH NOTED. PATIENT AMBULATORY WITH STEADY GATE. DISCHARGE INSTRUCTIONS GIVEN TO PATIENT INCLUDING FOLLOW UP WITH PRIMARY CARE PROVIDER, FOLLOW UP WITH DR. THOMPSON AND NEW PRESCRIPTIONS. PATIENT VERBALIZED UNDERSTANDING. IV ACCESS REMOVED, NO BLEEDING OR SWELLING NOTED. PATIENT SKIN INTACT. ALL BELONGINGS ACCOUNTED FOR. PATIENT ASSISTED TO THE LOBBY AND PICKED UP BY PRIVATE CAR IN STABLE CONDITION.
[2020-06-24] MEDS ORDERED: methylPREDNISolone SOD SUCC 125 MG/2ML VIAL IV SCH (09:00)
== END 2020-06-23 17:00 | disposition home or self-care (01) | DRG 249 ==
LOC: ER 18:00 → MED 22:20
PROVIDERS: ADMIT Nurse Practitioner Acute Care; ATTEND Nurse Practitioner Acute Care
PROC: 30233M1 Transfusion of Nonautologous Plasma Cryoprecipitate into Peripheral Vein, Percutaneous Approach (ICD-10-PCS; principal; 2020-06-20)
DX: A08.4 Viral intestinal infection, unspecified (principal); N17.0 Acute kidney failure with tubular necrosis; D68.9 Coagulation defect, unspecified; D47.2 Monoclonal gammopathy; D69.59 Other secondary thrombocytopenia; K76.6 Portal hypertension; I88.0 Nonspecific mesenteric lymphadenitis; K56.7 Ileus, unspecified; I10 Essential (primary) hypertension; R16.1 Splenomegaly, not elsewhere classified; D50.9 Iron deficiency anemia, unspecified; D63.0 Anemia in neoplastic disease; K74.60 Unspecified cirrhosis of liver; R18.8 Other ascites; I86.8 Varicose veins of other specified sites; E11.9 Type 2 diabetes mellitus without complications; Z79.4 Long term (current) use of insulin; Z85.6 Personal history of leukemia; Z20.822 Contact with and (suspected) exposure to COVID-19
CPT/HCPCS: 36415; 71045-TC; 76705-TC; 77075-TC; 80048-TC; 80053-TC; 80061-TC; 80076-TC; 81001; 82232; 82272-TC; 82728-TC; 82784; 82962-TC; 83010; 83540-TC; 83615-TC; 83690-TC; 83735-TC; 84100-TC; 84155; 84165; 84443-TC; 85025-TC; 85045-TC; 85396; 86140-TC; 86225; 86235; 86334; 86431-TC; 86706; 86803; 86850-TC; 87040-TC; 87081-TC; 87340; 87806; C9113; C9803; G0378; J0692; J1170; J1200; J1815; J2270; J2543; J2930; J3490; J7030; J7040; J7060; P9012

== ENCOUNTER 2020-08-05 19:16 | Inpatient (IN) | payer BC, MEDICAID ==
[~2020-08-05] VITALS: Ht 180.3 cm; Wt 76.7 kg
[~2020-08-05 19:16] MED LIST: GLUC1CAP30 PO; INSU100V7 SQ; LOSA1TAB42 PO; PRED50TA PO
[2020-08-05] MEDS ORDERED: ACETAMINOPHEN ES 500 MG TABLET PO ONE (20:00)
[2020-08-05] MEDS ORDERED: IV NS 0.9% 1,000 ML BAG IV ONE (20:00)
--- NOTE | 2020-08-05 20:01 | NUR ---
FEVER, FATIGUE X 1WEEK, 2ND DOSE COVID VAX PFIZER 07/30, HX LE[place]EMIA, TYL 1G 1HR AGO PER PT. AAOX4, RR EVEN & UNLABORED. DENIES CP, SOB, DIZZINESS, N/V AT THIS TIME. PT SEEN & EVAL'D BY DR. SLOAN. WILL CONT TO MONITOR.
[2020-08-05 20:08] LABS: BASOPHILS # (AUTO) 0.1 /CMM (0.0-0.2); BASOPHILS % (AUTO) 0.4 % (0.0-2.0); EOSINOPHILS % (AUTO) 0.3 % (0.0-6.0); HEMATOCRIT 46 % (39-51); HEMOGLOBIN 14.9 g/dL (13.5-17.5); LYMPHOCYTES % (AUTO) 6.4 % (20.0-44.0); MEAN CORPUSCULAR HGB CONC 33 g/dl (31.0-36.0); MEAN CORPUSCULAR VOLUME 79 fL (80-96); MONOCYTES # (AUTO) 0.5 /CMM (0.1-1.30); MONOCYTES % (AUTO) 3.6 % (2.0-12.0); NEUTROPHILS # (AUTO) 13.4 /CMM (1.8-8.9); NEUTROPHILS % (AUTO) 89.3 % (43.0-81.0); PLATELET COUNT (AUTO) 231 /CMM (150-450); RED BLOOD CELL COUNT(AUTO) 5.81 MIL/uL (4.5-6.0)
[2020-08-05 20:22] LABS: CALCIUM, SERUM 8.6 mg/dL (8.5-10.1); CREATININE 1.9 mg/dL (0.6-1.3); POTASSIUM 4.4 mmol/L (3.5-5.1)
[2020-08-05] MEDS ORDERED: ACETAMINOPHEN ES 500 MG TABLET ONE (20:25)
[2020-08-05 20:30] LABS: ALBUMIN 2.3 g/dL (3.4-5.0); BILIRUBIN,DIRECT 0.2 mg/dL (0.0-0.2); BILIRUBIN,TOTAL 0.7 mg/dL (0.2-1.0)
[2020-08-05 20:31] LABS: TOTAL PROTEIN, SERUM 5.1 g/dL (6.4-8.2)
[2020-08-05] MEDS ORDERED: IBUPROFEN 400 MG TABLET ONE (20:57)
[2020-08-05] MEDS ORDERED: CEFTRIAXONE 1GM BAG (ER ONLY) 50 ML IV ONE (21:17)
[2020-08-05] MEDS ORDERED: IBUPROFEN 400 MG TABLET PO ONE (21:30)
[2020-08-05] MEDS ORDERED: CEFTRIAXONE 1GM BAG (ER ONLY) 1 GM/50 ML PIGGYBACK IV ONE (21:30)
--- NOTE | 2020-08-05 21:42 | NUR ---
DR. SLOAN SPEAKING WITH JENNIFER VENTURA REGARDING ADMISSION
[2020-08-06] VITALS: BP 147/67
--- NOTE | 2020-08-06 00:31 | NUR ---
covid swab sent to lab
--- NOTE | 2020-08-06 00:31 | NUR ---
called lab for pickup
--- NOTE | 2020-08-06 01:23 | NUR ---
per lab, covid negative
--- NOTE | 2020-08-06 02:54 | NUR ---
gave report to NEVA Neal for corky
[2020-08-06] MEDS ORDERED: AZITHROMYCIN 500 MG in IV D5W 250 ML IV SCH (03:00)
[2020-08-06] MEDS ORDERED: MAGNESIUM HYDROXIDE 30 ML UDC PO PRN (03:00)
[2020-08-06] MEDS ORDERED: ONDANSETRON HCL/PF 4 MG/2 ML VIAL IVP PRN (03:00)
[2020-08-06] MEDS ORDERED: ACETAMINOPHEN 325 MG TABLET PO PRN (03:00)
[2020-08-06] MEDS ORDERED: MAG HYDROX/AL HYDROX/SIMETH 30 ML UDC PO PRN (03:00)
[2020-08-06] MEDS ORDERED: HYDROCODONE/APAP 5/325MG TABLET PO PRN (03:00)
[2020-08-06] MEDS ORDERED: IV NS 0.9% 1,000 ML IV PRN (03:00)
--- NOTE | 2020-08-06 03:09 | NUR ---
PT TRANSFERRED PER [facility]S PROTOCOL
[2020-08-06 03:10] VITALS: BP 147/67
--- NOTE | 2020-08-06 03:10 | NUR ---
TELERN RECEIVED FROM ER A 64 Y/O MALE CC OF FATIGUE, FEVER AND SORETHROAT AFTER 12 HRS POST COVID VACCINE 2ND DOSE ADMINISTRATION.ALERT/ORIENTED X4, EASILY SOB ON MIN EXERTION. STATED NOT HAPPY BEING ADMITTED, HAS FLIGHT ON SAT. AFEBRILE FOR NOW. V/S STABLE. ORIENTED TO ROOM FACILITIES, SAFETY PRECAUTIONS EMPHASIZED APPEARS TO UNDERSTAND.PLAN OF CARE AND MEDICATION REGIMEN EXPLAINED TO PATIENT, STATED HE IS AWARE. STATED HAS OWN INSULIN AND CHECKS HIS OWN BLOOD SUGAR. WANTED TO REST FOR NOW CHECKED RA SATURATION WAS 82% ENCOURAGED 02 USE. 95% ON 3L VIA NC. ALL NEEDS ATTENDED. CLOSELY WATCHED.
[2020-08-06] MEDS ORDERED: AZITHROMYCIN 500 MG VIAL ONE (03:50)
[2020-08-06 04:00] VITALS: BP 13/65
--- NOTE | 2020-08-06 04:53 | NUR ---
TELERN STARTED ON IVF AND ZITHROMAX.
[2020-08-06 05:00] VITALS: BP 134/65
[2020-08-06] MEDS ORDERED: MENTHOL/CETYLPYRD (CEPACOL) 1 LOZ LOZENGE PO PRN (05:30)
--- NOTE | 2020-08-06 06:54 | NUR ---
TELERN ASSITED TO RESTROOM. REFUSED TO USE URINAL. SAFETY PRECAUTIONS EMPHASIZED. TELE SHOWING NSR. REMAINS AFEBRILE. STATED FEELS A LOT BETTER TODAY. NO MORE SORETHROAT AND FATIGUE.. CONTINUED MONITORING.
--- NOTE | 2020-08-06 07:20 | NUR ---
INSTRUCTOR TECHNICAL TRAINING OPENING NOTE RECEIVED PATIENT IN BED. A/O X4. ON ROOM AIR, TOLERATING WELL. NO SOB NOTED. IN NO APPARENT DISTRESS. DENIES ANY PAIN OR DISCOMFORT AT THIS TIME. TELE READING SHOWS SR 76. IV ACCESS ON L AC #20 G, INTACT AND PATENT, NS CURRENTLY RUNNING AT 75 ML/HR. SAFETY MEASURES MAINTAINED. BED IN LOWEST POSITION, BRAKES LOCKED. SIDE RAILS UP X2. CALL LIGHT WITHIN REACH. WILL CONTINUE PLAN OF CARE. Addendum: 08/06/20 at 1125 by MEMO PORTER RN *02 3L ON DE
[2020-08-06] MEDS ORDERED: PANTOPRAZOLE 40 MG TABLET.DR PO SCH (07:30)
[2020-08-06 08:00] VITALS: BP 135/59
[2020-08-06 08:58] VITALS: BP 135/59
[2020-08-06] MEDS ORDERED: LOSARTAN POTASSIUM 50 MG TABLET PO SCH (09:00)
[2020-08-06] MEDS ORDERED: HYDROCHLOROTHIAZIDE 25 MG TABLET PO SCH (09:00)
[2020-08-06] MEDS ORDERED: DEXTROSE 50%-WATER 50 ML DISP.SYRIN ONE (12:00)
--- NOTE | 2020-08-06 12:45 | NUR ---
MS RN NOTE PATIENT AT 1306. AROUND 1240 PATIENT CALLED FOR ASSISTANCE. HE ASKED IF HE CAN HAVE A PITCHER OF WATER AND GO TO THE RESTROOM. I ASKED THE PT IF HE'S GONNA GO NO. 2, HE REPLIED YES. ASSISTED THE PT AND I TOLD THE PT THAT I'M NOT GONNA CLOSED THE DOOR IN HIS RESTROOM SINCE THE PT IS CONNECTED ON LONG NASAL CANNULA, INSTEAD I WILL CLOSE THE MAIN DOOR. SO I GRABBED A PITCHER OF WATER THEN WHEN I CAME BACK AROUND 1245 I SAW THE PT LYING DOWN ON THE FLOOR, NO RESPONSE, NO PULSE. I CALLED FOR HELP, 555 WAS CONTACTED TO ACTIVATE JAMIE FLORENTINO. STARTED TO INITIATE CPR. VITAL SIGNS AND BLOOD SUGAR WERE TAKEN. CODE BLUE TEAM ARRIVED AT 1250. EPI GIVEN X 4 DOSE. D50% GIVEN. DEFIB 200 J INITIATED AT 1302. DOCTOR CALLED PT AT 1306. INFORMED HOSPITALIST DR. CHIKA DUNBAR AT 1305. CALLED [facility] AT 1336. FAMILY (MARTA 'MARIANA') WERE NOTIFIED AT 1320. 1350 MARTA WENT UP TO SEE THE PT IN HIS ROOM. BELONGINGS WERE HANDED TO HER.
--- NOTE | 2020-08-06 14:56 | NUR ---
MS HOOKS NOTE POST MORTEM CARE DONE. 2 SECURITY BROUGHT THE PT DOWN TO THE MORTUARY. RING WILL BE HANDED TO THE NURSING ENVIRONMENTAL ENGINEERING PROFESSOR. Addendum: 08/06/20 at 1825 by MEMO PORTER RN ARLIN
[2020-08-06] MEDS ORDERED: SODIUM BICARBONATE SYR 50 MEQ/50 ML DISP.SYRIN ONE (15:45)
[2020-08-06] MEDS ORDERED: EPINEPHRINE (1:10,000) SYRINGE 1 MG/10 ML DISP.SYRIN ONE (15:45)
[2020-08-06] MEDS ORDERED: CEFTRIAXONE 1 G in IV D5W 50 ML IV SCH (21:00)
[2020-08-07] MEDS ORDERED: AZITHROMYCIN 500 MG in IV D5W 250 ML IV SCH (05:00)
== END 2020-08-06 14:00 | DRG 871 ==
LOC: ER 19:19 → TELE 08-06 02:49
PROVIDERS: ADMIT Nurse Practitioner Family; ATTEND Internal Medicine
PROC: 5A2204Z Restoration of Cardiac Rhythm, Single (ICD-10-PCS; principal; 2020-08-06)
PROC: 0BH17EZ Insertion of Endotracheal Airway into Trachea, Via Natural or Artificial Opening (ICD-10-PCS; 2020-08-06)
DX: A41.9 Sepsis, unspecified organism (principal); J15.6 Pneumonia due to other Gram-negative bacteria; N17.0 Acute kidney failure with tubular necrosis; C91.10 Chronic lymphocytic leukemia of B-cell type not having achieved remission; E44.0 Moderate protein-calorie malnutrition; I10 Essential (primary) hypertension; Z20.822 Contact with and (suspected) exposure to COVID-19; Z79.4 Long term (current) use of insulin; E10.9 Type 1 diabetes mellitus without complications; Z79.899 Other long term (current) drug therapy; D64.9 Anemia, unspecified; T50.2X5A Adverse effect of carbonic-anhydrase inhibitors, benzothiadiazides and other diuretics, initial encounter; T44.5X5A Adverse effect of predominantly beta-adrenoreceptor agonists, initial encounter; Y92.9 Unspecified place or not applicable; E88.09 Other disorders of plasma-protein metabolism, not elsewhere classified; Z68.23 Body mass index [BMI] 23.0-23.9, adult
CPT/HCPCS: 36415; 71045-TC; 80048-TC; 80076-TC; 83605-TC; 84484-TC; 85025-TC; 85730-TC; 87040-TC; 87081-TC; C9803; G0378; J0171; J0456; J0696; J3490; J7030; J7050; J7060